=== PATIENT | female | born 1980 | race Caucasian/White ===

== ENCOUNTER 2018-06-15 12:57 | Emergency (ER) | payer MEDICAID, OTHER ==
[~2018-06-15] VITALS: Ht 157.5 cm; Wt 75.2 kg
[2018-06-15] MEDS ORDERED: CLINDAMYCIN 150 MG/ML, 6ML IM ONE (13:30)
[2018-06-15] MEDS ORDERED: PLEASE ENTER ALLERGIES MC SCH (13:30)
[2018-06-15] MEDS ORDERED: OXYcodone/APAP 10/325MG TABLET PO ONE (13:30)
[2018-06-15] MEDS ORDERED: OXYcodone/APAP 10/325MG TABLET ONE (13:45)
[2018-06-15] MEDS ORDERED: CLINDAMYCIN 300 MG CAPSULE ONE (13:46)
[2018-06-15] MEDS ORDERED: CLINDAMYCIN 150 MG/ML, 6ML ONE (14:04)
[2018-06-15 14:33] VITALS: BP 151/79
== END 2018-06-15 14:35 | disposition home or self-care (01) ==
LOC: ED 14:29
DX: K04.7 Periapical abscess without sinus (principal)
CPT/HCPCS: 96372; 99283; S0077

== ENCOUNTER 2019-07-20 23:19 | Emergency (ER) | payer MEDICAID ==
[~2019-07-20] VITALS: Ht 154.9 cm; Wt 71.6 kg
--- NOTE | 2019-07-20 23:29 | NUR ---
Was at the [facility]; sitting in chair, spasming in lower left side; had previous case of "slipped disc" PER TRIAGE NOTE
[2019-07-20] MEDS ORDERED: KETOROLAC 30 MG/1 ML ONE (23:36)
[2019-07-20] MEDS ORDERED: OXYcodone/APAP 5/325MG TABLET ONE (23:36)
[2019-07-21] MEDS ORDERED: OXYcodone/APAP 5/325MG TABLET PO ONE
[2019-07-21] MEDS ORDERED: KETOROLAC 30 MG/1 ML IM ONE
--- NOTE | 2019-07-21 00:55 | NUR ---
VSS STABLE AFTER GIVEN PERCOCET PT UP AMBULATED TO CHECK OUT AFTER GIVEN ALL DC INSTRUCTION PT UNDERSTOOD
[2019-07-21 00:56] VITALS: BP 115/68
== END 2019-07-21 00:59 | disposition home or self-care (01) ==
LOC: ED 07-21 00:57
DX: M62.838 Other muscle spasm (principal); M54.5 Low back pain; E03.9 Hypothyroidism, unspecified
CPT/HCPCS: 96372; 99283; J1885